=== PATIENT | female | born 1975 | race Caucasian/White ===

== ENCOUNTER 2016-10-23 13:25 | Emergency (ER) | payer MEDICAID ==
[~2016-10-23] VITALS: Ht 157.5 cm; Wt 79.4 kg
[~2016-10-23 13:25] MED LIST: AZITHROMYCIN250 M1 PO; BENZONATATE100 M1 PO; BROMFED DM COU118 ML PO; CYCLOBENZAPRINE5 MG PO; FLONASE 50 MCG16 GM; FLOVENT 11110 MCG/PU IH; HYDROCODONE1 TABLET PO; KEFLEX 500MG.500 MG PO; MEDROL 4MG. DOSE4 MG PO; TOPROL XL 25MG25 MG PO; Tri-Sprintec 281 TAB PO
[2016-10-23] MEDS ORDERED: BROMFED DM COU118 ML PO (14:55)
--- NOTE | 2016-10-23 14:55 | Urgent Treatment Center Report ---
History of Present Issue Date/Time Seen by Provider 10/23/16 1400 Visit Reason Pt arrived:Walked Presenting Problem:PT C/O DRY COUGH, SORE THROAT, STOPPED UP NOSE, AND EARS POPPING Location if Accident: Onset of symptoms date/time:/ or onset unknown for:MEDICAL HX UNKNOWN Have you (or family members/close friends) recently traveled outside the [place]? N If Yes, where/when: Have you had exposure to infectious disease within the past month? TB? Other? Specify: Patient state that she has been having a dry hacky cough, sore throat and stuffy nose for several days that has not improved States that she thought she may should come in and get checked ALLERGIES Coded Allergies: No Known Allergies (12/29/15) Home Medications Active Scripts Fluticasone Propionate (Flonase 50 Mcg Nasal [place]) 2 SPRAY NA DAILY #1 BOT Prov: 09/06/16 Methylprednisolone (Medrol Dose [place]) 4 MG PO UD #1 CÉSAR Prov: 09/06/16 D-METHORPHAN HB/P-EPD HCL/BPM (Bromfed Dm Cough Syrup) 10 ML PO QIDP PRN cough #240 ML Prov: 09/06/16 Reported Medications NORGESTIMATE-ETHINYL ESTRADIOL (Tri-Sprintec Tablet) 1 TAB PO DAILY #28 Metoprolol Succinate Xl (Toprol Xl) 25 MG PO DAILY History Medical History General CAD? No Angina: No [place]: No Hypertension? Yes Hyperlipidemia? No CHF? No DVT? Yes PE? No COPD? No Asthma? Yes Anemia? No GERD? Yes Gastric ulcers? No GI Bleed? No Hernia? No Thyroid Problems? No Hypothyroidism? No CVA? No Seizures? No Diabetes? No Renal Insuffiency? No UTI? Yes Stones? No BPH? No GB Disease: No Nephritic Syndrome? No Asplenia? No Hepatitis? No Sickle Cell Disease? No Arthritis? No Migraines? No Cataracts? No Glaucoma? No MRSA? No HIV? No TB? No Anxiety? Yes Depression? Yes Cancer? No More? No Immunization HX DT/Tetanus 5-10 YRS Flu NEVER Pneumonia NEVER Surgical Hx Previous Surgery?Y LAPAROSCOPY X 2 COLONOSCOPY WISDOM TEETH REMOVED Family History Family HX Diabetes Yes CAD Yes Hypertension Yes Hyperlipidemia Yes Cancer Yes TB No Social History Smoking Hx Smoker: Never Smoker Tobacco: No Are you/the child exposed to second-hand smoke: Yes Alcohol Alcohol: No Review of Systems All Other Systems Reviewed and Negative ENT ear pain, nose discharge, nose congestion. Respiratory cough Physical Exam Vital Signs Vital Signs Date Time Temp Pulse Resp B/P Pulse O2 O2 Flow FiO2 Ox Delivery Rate 10/23 1459 98.2 91 20 110/77 96 10/23 1337 98.2 91 20 110/77 96 General Appearance normal appearance, WD/WN, no apparent distress Respiratory Status Yes: trachea midline, chest symmetrical, non tender chest. No: respiratory distress. 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 No Departure Departure Time of Disposition 1453 Disposition DC Home or Self Care(routine) Clinical Impression Primary Impression: Viral upper respiratory illness Condition STABLE Referrals DALE DOYLE (Family) Patient Instructions DI for Viral Upper Respiratory Infection-Child Additional Instructions * Monitor Temp. Tylenol and/or Ibuprofen as needed. ER if fever is no less than 101 despite alternating Tylenol and Ibuprofen * Encourage fluids, water, Gatorade, powerade, * Warm salt water gargles for throat irritation *Warm fluids *Sore throat lozenges *Sleep elevated Discharge Counseling Counseled pt/family regarding diagnosis, test results, medications/RX, home care, follow up needs Prescriptions Current Visit Scripts D-METHORPHAN HB/P-EPD HCL/BPM (Bromfed Dm Cough Syrup) 10 ML PO Q4HP PRN cough #120 SYR at 0411
[2016-10-23 14:59] VITALS: BP 110/77
== END 2016-10-23 14:59 | disposition home or self-care (01) ==
LOC: UTC 13:25
DX: J06.9 Acute upper respiratory infection, unspecified (principal); I10 Essential (primary) hypertension; K21.9 Gastro-esophageal reflux disease without esophagitis; F41.8 Other specified anxiety disorders

== ENCOUNTER 2017-01-31 20:34 | Emergency (ER) | payer MEDICAID ==
[~2017-01-31] VITALS: Ht 157.5 cm; Wt 78.0 kg
[~2017-01-31 20:34] MED LIST changes: +BACTRIM DS 8001 TA1 PO
--- OUTSIDE RECORDS SUMMARY | 2017-01-31 21:43 | External Medical Summary Rpt ---
Author Author , RUDY PELAYO Address Unknown Phone [email or web address] Purpose Continuity of Care Document - through 2016 Problems Code Diagnosis DOS Provider Status J02.9 ACUTE PHARYNGITIS , UNSPECIFIED M54.16 RADICULOPAT HY, LUMBAR REGION R55 SYNCOPE AND COLLAPSE S06.0X9A CONCUSSION W LOSS OF CONSCIOUSNE SS OF UNSP DURATION, INIT S16.1XXA STRAIN OF MUSCLE, FASCIA AND TENDON AT NECK LEVEL, INIT
--- OUTSIDE RECORDS SUMMARY | 2017-01-31 21:43 | External Medical Summary Rpt ---
Demographics Preferred Language Thai Marital Status Unknown Yarsanism Affiliation Unknown Race Unknown Ethnic Group Unknown Author Author RUDY Address Unknown Phone [email or web address] Purpose Continuity of Care Document - through 2016
--- OUTSIDE RECORDS SUMMARY | 2017-01-31 21:43 | External Medical Summary Rpt ---
Author Author , PIERCE PELAYO Address Unknown Phone [email or web address] Immunization Name Date Rout CVX Reac Dose Comm Prov Is Faci e tion ent ider Refu lity Give sed n Tdap 01-2 115 999 Hist H149 No H149 , 03-12 oric Adso 13 al rbed Info rmat ion - Sour ce Unsp ecif ied Td 03-0 9 999 Hist H149 No H149 (ilya - oric lt), 04 al Info adso rmat rbed ion - Sour ce Unsp ecif ied
--- OUTSIDE RECORDS SUMMARY | 2017-01-31 21:43 | External Medical Summary Rpt ---
Demographics Preferred Language Frisian Marital Status Unknown Amish Affiliation Unknown Race Unknown Ethnic Group Unknown Author Author RUDY Address Unknown Phone [email or web address] Purpose Continuity of Care Document - through 2016
--- OUTSIDE RECORDS SUMMARY | 2017-01-31 21:43 | External Medical Summary Rpt ---
Author Author , PIERCE PELAYO Address Unknown Phone [email or web address] Immunization Name Date Rout CVX Reac Dose [...]
--- OUTSIDE RECORDS SUMMARY | 2017-01-31 21:43 | External Medical Summary Rpt ---
Author Author , RUDY PELAYO Address Unknown Phone [email or web address] Purpose Continuity of Care Document - through 2016 Problems Code Diagnosis DOS Provider Status J02.9 ACUTE PHARYNGITIS , UNSPECIFIED M54.16 RADICULOPAT HY, LUMBAR REGION R55 SYNCOPE AND COLLAPSE S06.0X9A CONCUSSION W LOSS OF CONSCIOUSNE SS OF UNSP DURATION, INIT S16.1XXA STRAIN OF MUSCLE, FASCIA AND TENDON AT NECK LEVEL, INIT
--- NOTE | 2017-01-31 22:31 | Emergency Room Report ---
History of Present Illness Time Seen by [id number] Presenting Problem in Triage Pt arrived:Walked Presenting Problem:DIARRHEA AND DEHYDRATION WITH COUGHING STARTED AT 1800 INTERMITTEN FACIAL DROOPING AND LEFT ARM AND LEG WEAKNESS WITH DIARRHEAL EPISODES WORSE TODAY. 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 N Clinical Suspician of Infection? Y Mental Status: 1 - Regular (Normal Baseline) Sepsis Risk:Low Sepsis Risk Have you (or family members/close friends) recently traveled outside the [place]? N If Yes, where/when: Have you had exposure to infectious disease within the past month? N TB? Other? Specify: Source patient, RN notes reviewed, family, old records Exam Limitations no limitations Comment tosha menendez reports episodes of diarrhea w/o fever or blood over the last few weeks with occ cough and she also has episodes of feeling weak but no def focal neuro sx - these episodes are intermiitent and not paired - she has none of these issues at this time Cardiac Chest Pain Chest pain indicative of cardiac No Timing/Duration this evening Severity moderate ALLERGIES Coded Allergies: No Known Allergies (12/29/15) Home Medications Active Scripts SULFAMETHOXAZOLE W/TRIMETHOPRI (Bactrim Ds Tab) 1 TABLET PO BID #20 TAB Prov: 12/10/16 Fluticasone Propionate (Flonase 50 Mcg Nasal [place]) 2 SPRAY NA DAILY #1 BOT Prov: 09/06/16 D-METHORPHAN HB/P-EPD HCL/BPM (Bromfed Dm Cough Syrup) 10 ML PO QIDP PRN cough #240 ML Prov: 09/06/16 Reported Medications NORGESTIMATE-ETHINYL ESTRADIOL (Tri-Sprintec Tablet) 1 TAB PO DAILY #28 Metoprolol Succinate Xl (Toprol Xl) 25 MG PO DAILY History Medical History General CAD? No Angina: No [place]: No Hypertension? Yes Hyperlipidemia? No CHF? No DVT? Yes PE? No COPD? No Asthma? Yes Anemia? No GERD? Yes Gastric ulcers? No GI Bleed? No Hernia? No Thyroid Problems? No Hypothyroidism? No CVA? No Seizures? No Diabetes? No Renal Insuffiency? No End Stage Renal Disease? No UTI? Yes Stones? No BPH? No GB Disease: No Nephritic Syndrome? No Asplenia? No Hepatitis? No Sickle Cell Disease? No Arthritis? No Migraines? No Cataracts? No Glaucoma? No MRSA? No HIV? No TB? No Anxiety? Yes Depression? Yes Cancer? No More? 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 Respiratory denies cough, denies shortness of breath, denies wheezing Cardiovascular denies chest pain, denies palpitations, denies syncope Gastrointestinal see HPI, denies abdominal pain, diarrhea, denies vomiting Genitourinary denies: dysuria, frequency, hesitancy, hematuria. Musculoskeletal denies back pain, denies joint pain, denies joint swelling, denies neck pain Skin denies rash Psychiatric/Neurological see HPI, denies headache, denies seizure, weakness Physical Exam Vital Signs Vital Signs Date Time Temp Pulse Resp B/P Pulse O2 O2 Flow FiO2 Ox Delivery Rate 02/01 0039 87 14 122/55 98 02/01 0005 98.2 89 14 126/74 98 / 2150 98.2 89 14 112/77 98 / 2139 98.2 89 14 119/99 98 - WBC >12,000 or <4,000 or 10% bands? 2 or more SIRS Criteria Met? B/P:122/55 MAP:105 Creatinine >2.0? UA output<0.5ml/kg/hr for 2 hrs? Platelet count >100,000? Lactate >2.0mmol/1? INR >1.2 or PTT > than 60 sec? Evidence of Organ Dysfunction? Provider documented clinical suspician of infection? Y Sepsis Criteria Count: 1 Sepsis Risk: Low Sepsis Risk General Appearance no apparent distress Eye Exam - bilateral eye PERRL, bilateral eye EOMI Ear, Nose, Throat normal ENT inspection Neck supple Respiratory Status No: respiratory distress. Lung Sounds bilateral: lungs clear. 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 No Results/Orders Laboratory Tests 01/31/172226: Sodium 138, Potassium 4.3, Chloride 105, Carbon Dioxide 26, BUN 8, Creatinine 0.7, Estimated Creat Clear 132, Estimated GFR (MDRD) 93, Glucose 91, Calcium 9.0 , Total Bilirubin 0.2, AST 21, ALT 21, Alkaline Phosphatase 75, Creatine Kinase 74, CK-MB (CK-2) Rel Index 0.7, CK and CKMB Interp < 0.5, Troponin I < 0.02, Total Protein 7.2, Albumin 3.1 L, Globulin 4.1 H, Albumin/Globulin Ratio 0.8 L, WBC 11.4 H, RBC 4.38, Hgb 13.4, Hct 40.6, MCV 92.6, RDW 12.7, Plt Count 308, MPV 7.1 L, Gran % 61.5, Gran # 7.0, Lymphocytes % 29.2, Monocytes % 5.0, Eosinophils % 3.8, Basophils % 0.4, Lymphocytes # 3.3, Monocytes # 0.6, Eosinophils # 0.4, Basophils # 0.1, PUBS MCHC 32.9, MCH 30.5 01/31/17 2218: Urine Color YELLOW, Urine Appearance CLEAR, Urine pH 6.0, Ur Specific [place] <= 1.005, Urine Protein NEGATIVE, Urine Ketones NEGATIVE, Urine Blood NEGATIVE, Urine Nitrate NEGATIVE, Urine Bilirubin NEGATIVE, Urine Urobilinogen 0.2, Ur Leukocyte Esterase TRACE H, Urine RBC NONE, Urine WBC OCC, Ur Squamous Epith Cells 3-5, Urine Bacteria 1+, Urine Glucose NEGATIVE Current Medication Orders Sig/Asher Start time Last Medication Dose Route Stop Time Status Admin Sodium Chloride 1,000 ML .STK-MED ONE 02/01 0000 DC IV Aspirin 0 .STK-MED ONE 01/31 2359 DC .ROUTE Aspirin 324 MG ONCE ONE 01/31 2200 DC 01/31 PO 01/31 2201 235 Sodium Chloride 1,000 ML .Q1H1M 01/31 2200 DC 02/01 IV 01/31 2300 0000 Sodium Chloride 10 ML PRN PRN 01/31 2200 AC IV 02/01 2200 Orders Procedure Date/time Status DIET-NOTHING BY MOUTH 02/01 B Active URINE 01/[address] HEAD W/O CONTRAST 01/31 2213 Active 12 LEAD EKG-BESSON (INITIAL) 01/31 2200 Active ELECTROCARDIOGRAM REQUEST 01/31 2200 Active CHEST-PORTABLE 01/31 2200 Active URINALYSIS/COMPLETE 01/[address] HEAD REQ 01/31 2158 Active IV SALINE LOCK 01/31 2158 Active CBC WITH AUTO DIFF 01/31 2158 Complete CARDIAC ENZYMES 01/31 2158 Complete CHEM 12 PROFILE 01/31 2158 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 of ischemic chgs XRAY/CT/US XRAY/CT/US CT head CT interpretation by discussed w/radiologist Time results known: 0157 CT Results normal/NAD Departure Departure Time of Disposition 150 Disposition DC Home or Self Care(routine) Clinical Impression Primary Impression: Enteritis Condition STABLE Referrals DALE DOYLE (Family) Patient Instructions DIET-DIARRHEA NUTRITION [facility] Additional Instructions call your dr for follow up and recheck if needed Discharge Counseling Counseled pt/family regarding diagnosis, test results, medications/RX, follow up needs ED Critical Care Critical Care No at 0158
--- NOTE | 2017-01-31 22:31 | Emergency Room Report ---
History of Present Illness Time Seen by [id number] Presenting Problem in Triage Pt arrived:Walked Presenting Problem:DIARRHEA AND DEHYDRATION WITH COUGHING STARTED AT 1800 INTERMITTEN FACIAL DROOPING AND LEFT ARM AND LEG WEAKNESS WITH DIARRHEAL EPISODES WORSE TODAY. 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 N Clinical Suspician of Infection? Y Mental Status: 1 - Regular (Normal Baseline) Sepsis Risk:Low Sepsis Risk Have you (or family members/close friends) recently traveled outside the [place]? N If Yes, where/when: Have you had exposure to infectious disease within the past month? N TB? Other? Specify: Source patient, RN notes reviewed, family, old records Exam Limitations no limitations Comment tosha menendez reports episodes of diarrhea w/o fever or blood over the last few weeks with occ cough and she also has episodes of feeling weak but no def focal neuro sx - these episodes are intermiitent and not paired - she has none of these issues at this time Cardiac Chest Pain Chest pain indicative of cardiac No Timing/Duration this evening Severity moderate ALLERGIES Coded Allergies: No Known Allergies (12/29/15) Home Medications Active Scripts SULFAMETHOXAZOLE W/TRIMETHOPRI (Bactrim Ds Tab) 1 TABLET PO BID #20 TAB Prov: 12/10/16 Fluticasone Propionate (Flonase 50 Mcg Nasal [place]) 2 SPRAY NA DAILY #1 BOT Prov: 09/06/16 D-METHORPHAN HB/P-EPD HCL/BPM (Bromfed Dm Cough Syrup) 10 ML PO QIDP PRN cough #240 ML Prov: 09/06/16 Reported Medications NORGESTIMATE-ETHINYL ESTRADIOL (Tri-Sprintec Tablet) 1 TAB PO DAILY #28 Metoprolol Succinate Xl (Toprol Xl) 25 MG PO DAILY History Medical History General CAD? No Angina: No [place]: No Hypertension? Yes Hyperlipidemia? No CHF? No DVT? Yes PE? No COPD? No Asthma? Yes Anemia? No GERD? Yes Gastric ulcers? No GI Bleed? No Hernia? No Thyroid Problems? No Hypothyroidism? No CVA? No Seizures? No Diabetes? No Renal Insuffiency? No End Stage Renal Disease? No UTI? Yes Stones? No BPH? No GB Disease: No Nephritic Syndrome? No Asplenia? No Hepatitis? No Sickle Cell Disease? No Arthritis? No Migraines? No Cataracts? No Glaucoma? No MRSA? No HIV? No TB? No Anxiety? Yes Depression? Yes Cancer? No More? 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 Respiratory denies cough, denies shortness of breath, denies wheezing Cardiovascular denies chest pain, denies palpitations, denies syncope Gastrointestinal see HPI, denies abdominal pain, diarrhea, denies vomiting Genitourinary denies: dysuria, frequency, hesitancy, hematuria. Musculoskeletal denies back pain, denies joint pain, denies joint swelling, denies neck pain Skin denies rash Psychiatric/Neurological see HPI, denies headache, denies seizure, weakness Physical Exam Vital Signs Vital Signs Date Time Temp Pulse Resp B/P Pulse O2 O2 Flow FiO2 Ox Delivery Rate 02/01 0039 87 14 122/55 98 02/01 0005 98.2 89 14 126/74 98 / 2150 98.2 89 14 112/77 98 / 2139 98.2 89 14 119/99 98 - WBC >12,000 or <4,000 or 10% bands? 2 or more SIRS Criteria Met? B/P:122/55 MAP:105 Creatinine >2.0? UA output<0.5ml/kg/hr for 2 hrs? Platelet count >100,000? Lactate >2.0mmol/1? INR >1.2 or PTT > than 60 sec? Evidence of Organ Dysfunction? Provider documented clinical suspician of infection? Y Sepsis Criteria Count: 1 Sepsis Risk: Low Sepsis Risk General Appearance no apparent distress Eye Exam - bilateral eye PERRL, bilateral eye EOMI Ear, Nose, Throat normal ENT inspection Neck supple Respiratory Status No: respiratory distress. Lung Sounds bilateral: lungs clear. 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 No Results/Orders Laboratory Tests 01/31/172226: Sodium 138, Potassium 4.3, Chloride 105, Carbon Dioxide 26, BUN 8, Creatinine 0.7, Estimated Creat Clear 132, Estimated GFR (MDRD) 93, Glucose 91, Calcium 9.0 , Total Bilirubin 0.2, AST 21, ALT 21, Alkaline Phosphatase 75, Creatine Kinase 74, CK-MB (CK-2) Rel Index 0.7, CK and CKMB Interp < 0.5, Troponin I < 0.02, Total Protein 7.2, Albumin 3.1 L, Globulin 4.1 H, Albumin/Globulin Ratio 0.8 L, WBC 11.4 H, RBC 4.38, Hgb 13.4, Hct 40.6, MCV 92.6, RDW 12.7, Plt Count 308, MPV 7.1 L, Gran % 61.5, Gran # 7.0, Lymphocytes % 29.2, Monocytes % 5.0, Eosinophils % 3.8, Basophils % 0.4, Lymphocytes # 3.3, Monocytes # 0.6, Eosinophils # 0.4, Basophils # 0.1, PUBS MCHC 32.9, MCH 30.5 01/31/17 2218: Urine Color YELLOW, Urine Appearance CLEAR, Urine pH 6.0, Ur Specific [place] <= 1.005, Urine Protein NEGATIVE, Urine Ketones NEGATIVE, Urine Blood NEGATIVE, Urine Nitrate NEGATIVE, Urine Bilirubin NEGATIVE, Urine Urobilinogen 0.2, Ur Leukocyte Esterase TRACE H, Urine RBC NONE, Urine WBC OCC, Ur Squamous Epith Cells 3-5, Urine Bacteria 1+, Urine Glucose NEGATIVE Current Medication Orders Sig/Asher Start time Last Medication Dose Route Stop Time Status Admin Sodium Chloride 1,000 ML .STK-MED ONE 02/01 0000 DC IV Aspirin 0 .STK-MED ONE 01/31 2359 DC .ROUTE Aspirin 324 MG ONCE ONE 01/31 2200 DC 01/31 PO 01/31 2201 235 Sodium Chloride 1,000 ML .Q1H1M 01/31 2200 DC 02/01 IV 01/31 2300 0000 Sodium Chloride 10 ML PRN PRN 01/31 2200 AC IV 02/01 2200 Orders Procedure Date/time Status DIET-NOTHING BY MOUTH 02/01 B Active URINE 01/[address] HEAD W/O CONTRAST 01/31 2213 Active 12 LEAD EKG-BESSON (INITIAL) 01/31 2200 Active ELECTROCARDIOGRAM REQUEST 01/31 2200 Active CHEST-PORTABLE 01/31 2200 Active URINALYSIS/COMPLETE 01/[address] HEAD REQ 01/31 2158 Active IV SALINE LOCK 01/31 2158 Active CBC WITH AUTO DIFF 01/31 2158 Complete CARDIAC ENZYMES 01/31 2158 Complete CHEM 12 PROFILE 01/31 2158 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 of ischemic chgs XRAY/CT/US XRAY/CT/US CT head CT interpretation by discussed w/radiologist Time results known: 0157 CT Results normal/NAD Departure Departure Time of Disposition 150 Disposition DC Home or Self Care(routine) Clinical Impression Primary Impression: Enteritis Condition STABLE Referrals DALE DOYLE (Family) Patient Instructions DIET-DIARRHEA NUTRITION [facility] Additional Instructions call your dr for follow up and recheck if needed Discharge Counseling Counseled pt/family regarding diagnosis, test results, medications/RX, follow up needs ED Critical Care Critical Care No at 0158
[2017-01-31 22:34] LABS: URINE BILIRUBIN - DIPSTICK NEGATIVE (NEG); URINE BLOOD NEGATIVE (NEG)
[2017-01-31 22:43] LABS: HEMOGLOBIN 13.4 g/dL (12.2-16.2); LYMPH # 3.3 K/mm3 (0.7-4.5); LYMPH % 29.2 % (10-50.0)
[2017-01-31 23:16] LABS: BUN 8 mg/dL (7-18)
[2017-01-31 23:17] LABS: GFR (ESTIMATED) 93 ML/MIN (59-)
[2017-02-01 02:10] VITALS: BP 122/55
--- NOTE | 2017-02-01 06:41 | RADIOLOGY REPORT PS360 ---
CHEST-PORTABLE HISTORY: Chest pain DEHYDRATION AND NUMBNESS ORDERING PHYSICIAN: Newton Higuera MD PATIENT AGE: 41 years COMPARISON: None available FINDINGS: The cardiomediastinal silhouette and pulmonary vascularity are within normal limits. The lungs are clear without infiltrates, suspicious nodules, or pleural effusions. No acute bony abnormalities. IMPRESSION: Negative chest, no acute finding
--- NOTE | 2017-02-01 06:42 | RADIOLOGY REPORT PS360 ---
CT HEAD W/O CONTRAST HISTORY: Left-sided weakness NUMBNESS AND DEHYDRATION ORDERING PHYSICIAN: Newton Higuera MD PATIENT AGE: 41 years COMPARISON: 12/29/2015 TECHNIQUE: Axial images obtained without contrast. Brain and bone windows reviewed. FINDINGS: No midline shift, mass effect, intracranial hemorrhage, hydrocephalus, or extra-axial fluid collection is evident. The calvarium has an unremarkable appearance. No mastoid effusion. There is mild mucosal thickening of the ethmoid and sphenoid sinuses. IMPRESSION: No acute intracranial findings
== END 2017-02-01 02:12 | disposition home or self-care (01) ==
LOC: ER 20:34
PROVIDERS: Emergency Medicine
DX: K52.9 Noninfective gastroenteritis and colitis, unspecified (principal); I10 Essential (primary) hypertension; K21.9 Gastro-esophageal reflux disease without esophagitis; F41.8 Other specified anxiety disorders

== ENCOUNTER 2017-03-15 19:43 | Emergency (ER) | payer MEDICAID ==
[~2017-03-15] VITALS: Ht 157.5 cm; Wt 87.5 kg
[2017-03-15 20:06] LABS: URINE BILIRUBIN - DIPSTICK NEGATIVE (NEG); URINE BLOOD TRACE (NEG)
--- NOTE | 2017-03-15 20:25 | [facility]gent Treatment Center Report ---
History of Present Issue Date/Time Seen by Provider 03/15/171958 Visit Reason Pt arrived:Walked Presenting Problem:PT C/O BURNING AND ITCHING IN VAGINAL AREA X2-3 DAYS Location if Accident: Onset of symptoms date/time:/ or onset unknown for:MEDICAL HX UNKNOWN Have you (or family members/close friends) recently traveled outside the [place]? N If Yes, where/when: Have you had exposure to infectious disease within the past month? TB? Other? Specify: c/o "I think a UTI". Dysuria and vaginal itching x 2-3 days w/ foul odor and low back pain. LMP ended yesterday. Denies discharge intially but then recalls dark discharge yesterday and today "similiar to period blood though". painful intercourse x 2-3 days. Finished antibiotic around 1-2 weeks ago. sexually active w/ spouse only. No reason to think STD. OCP. Source patient Exam Limitations clinical condition ALLERGIES Coded Allergies: No Known Allergies (03/15/17) Home Medications Active Scripts SULFAMETHOXAZOLE W/TRIMETHOPRI (Bactrim Ds Tab) 1 TABLET PO BID #20 TAB Prov: 12/10/16 Fluticasone Propionate (Flonase 50 Mcg Nasal [place]) 2 SPRAY NA DAILY #1 BOT Prov: 09/06/16 D-METHORPHAN HB/P-EPD HCL/BPM (Bromfed Dm Cough Syrup) 10 ML PO QIDP PRN cough #240 ML Prov: 09/06/16 Reported Medications NORGESTIMATE-ETHINYL ESTRADIOL (Tri-Sprintec Tablet) 1 TAB PO DAILY #28 Metoprolol Succinate Xl (Toprol Xl) 25 MG PO DAILY History Medical History General CAD? No Angina: No [place]: No Hypertension? Yes Hyperlipidemia? No CHF? No DVT? Yes PE? No COPD? No Asthma? Yes Anemia? No GERD? Yes Gastric ulcers? No GI Bleed? No Hernia? No Thyroid Problems? No Hypothyroidism? No CVA? No Seizures? No Diabetes? No Renal Insuffiency? No UTI? Yes Stones? No BPH? No GB Disease: No Nephritic Syndrome? No Asplenia? No Hepatitis? No Sickle Cell Disease? No Arthritis? No Migraines? No Cataracts? No Glaucoma? No MRSA? No HIV? No TB? No Anxiety? Yes Depression? Yes Cancer? No More? No Immunization HX DT/Tetanus 5-10 YRS Flu NEVER Pneumonia NEVER Surgical Hx Previous Surgery?Y LAPAROSCOPY X 2 COLONOSCOPY WISDOM TEETH REMOVED Family History Family HX Diabetes Yes CAD Yes Hypertension Yes Hyperlipidemia Yes Cancer Yes TB No Social History Smoking Hx Smoker: Never Smoker Tobacco: No Are you/the child exposed to second-hand smoke: Yes Alcohol Alcohol: No Review of Systems All Other Systems Reviewed and Negative Constitutional see HPI, denies chills, denies fever, denies malaise Gastrointestinal see HPI, denies abdominal pain, denies nausea, denies vomiting Genitourinary see HPI. denies: abnormal vaginal bleeding, frequency, hesitancy, hx stds. Musculoskeletal see HPI Skin denies lesions, denies lumps Psychiatric/Neurological denies headache, denies other (dizziness) Physical Exam Vital Signs Vital Signs Date Time Temp Pulse Resp B/P Pulse O2 O2 Flow FiO2 Ox Delivery Rate 03/15 2148 98.2 87 14 134/89 98 03/15 1956 98.2 87 14 134/89 98 General Appearance no apparent distress, obese Respiratory Status No: respiratory distress. Cardiovascular no peripheral edema Gastrointestinal normal bowel sounds, non tender, soft, no organomegaly, no guarding, no rebound Back no CVA tenderness, gait normal, no tenderness Pelvic discharge (thin, osei, foul odor), vaginal wall bright red. pt extremely uncomfortable w/ minimal speculum insertion. Asked that exam be stopped. Didn't tolerate manual exam due to vaginal discomfort. Does not want to proceed with vaginal exam despite risk if object in vagina, lesions, abnormal cervix, etc. Agrees to FU w/ ROOFER ASSISTANT. Nurse present during exam? Yes (Daniela) Neurologic alert, oriented x 3 Skin normal color, warm/dry Medical Decision Making LABS/Meds/Orders Pt receiving controlled substance in ED? No Results/Orders Laboratory Tests 03/15/172024: Ur Chlamydia DNA (PCR) Cancelled, Urine GC DNA Probe Cancelled 03/15/172024: C.trachomatis DNA (ELIEZER) Pending, N.gonorrhoeae RNA Pending 03/15/171953: Urine Color DARK YELLOW, Urine Appearance Sl Cloudy, Urine pH 6.0, Ur Specific [place] >= 1.030, Urine Protein NEGATIVE, Urine Ketones NEGATIVE, Urine Blood TRACE H, Urine Nitrate NEGATIVE, Urine Bilirubin NEGATIVE, Urine Urobilinogen 0.2, Ur Leukocyte Esterase NEGATIVE, Urine Glucose NEGATIVE Orders Procedure Date/time Status WET PREP 03/15 2043 Complete CULTURE, URINE 03/15 2043 Active JAMIL PREP 03/15 2043 Complete CHLAMYDIA/GC 03/15 2025 Active [facility] URINE DIPSTICK 03/15 1954 Complete Consult MD Physician Consult Consult/PCP WASHINGTON Morton MD Time Called 2134 Reason Pt. Condition Comments Discussed HPI, exam, results. Suggest treatment for urethritis and vaginitis. Include pyridium w/ FU ROOFER ASSISTANT Friday. Departure Departure Time of Disposition 2138 Disposition DC Home or Self Care(routine) Clinical Impression Primary Impression: Urethritis Secondary Impressions: Vaginitis Qualifiers: Chronicity: acute Qualified Code: N76.0 - Acute vaginitis Condition STABLE Referrals NO REFERRAL Call you ROOFER ASSISTANT Friday morning and schedule follow up appt PHONG. Be sure to tell them you were seen in [facility] for symptoms on Friday. Patient Instructions DI for Atrophic Vaginitis, DI for Urethritis Additional Instructions Follow up w/ ROOFER ASSISTANT VERY important on Friday! let them know we sent urine culture and additional STI tests. those results won't be available tonight. Urine culture in 2-3 days and urine for STI in 5-7 days. * pyridium as needed. Remember this will turn your urine ORANGE, this is normal but will stain whatever it gets on * You should not need the pyridium longer than 48 hours. If so, follow up with ROOFER ASSISTANT to review urine culture Discharge Counseling Counseled pt/family regarding diagnosis, test results, medications/RX, home care, follow up needs Prescriptions Current Visit Scripts Clindamycin Phosphate 5 GM GA QHS #40 GM x 7 days Phenazopyridine HCl (Pyridium) 200 MG PO TIDP PRN dysuria #6 TAB will cause orange urine at 2158
--- NOTE | 2017-03-15 20:25 | Urgent Treatment Center Report ---
History of Present Issue Date/Time Seen by Provider 03/15/171958 Visit Reason Pt arrived:Walked Presenting Problem:PT C/O BURNING AND ITCHING IN VAGINAL AREA X2-3 DAYS Location if Accident: Onset of symptoms date/time:/ or onset unknown for:MEDICAL HX UNKNOWN Have you (or family members/close friends) recently traveled outside the [place]? N If Yes, where/when: Have you had exposure to infectious disease within the past month? TB? Other? Specify: c/o "I think a UTI". Dysuria and vaginal itching x 2-3 days w/ foul odor and low back pain. LMP ended yesterday. Denies discharge intially but then recalls dark discharge yesterday and today "similiar to period blood though". painful intercourse x 2-3 days. Finished antibiotic around 1-2 weeks ago. sexually active w/ spouse only. No reason to think STD. OCP. Source patient Exam Limitations clinical condition ALLERGIES Coded Allergies: No Known Allergies (03/15/17) Home Medications Active Scripts SULFAMETHOXAZOLE W/TRIMETHOPRI (Bactrim Ds Tab) 1 TABLET PO BID #20 TAB Prov: 12/10/16 Fluticasone Propionate (Flonase 50 Mcg Nasal [place]) 2 SPRAY NA DAILY #1 BOT Prov: 09/06/16 D-METHORPHAN HB/P-EPD HCL/BPM (Bromfed Dm Cough Syrup) 10 ML PO QIDP PRN cough #240 ML Prov: 09/06/16 Reported Medications NORGESTIMATE-ETHINYL ESTRADIOL (Tri-Sprintec Tablet) 1 TAB PO DAILY #28 Metoprolol Succinate Xl (Toprol Xl) 25 MG PO DAILY History Medical History General CAD? No Angina: No [place]: No Hypertension? Yes Hyperlipidemia? No CHF? No DVT? Yes PE? No COPD? No Asthma? Yes Anemia? No GERD? Yes Gastric ulcers? No GI Bleed? No Hernia? No Thyroid Problems? No Hypothyroidism? No CVA? No Seizures? No Diabetes? No Renal Insuffiency? No UTI? Yes Stones? No BPH? No GB Disease: No Nephritic Syndrome? No Asplenia? No Hepatitis? No Sickle Cell Disease? No Arthritis? No Migraines? No Cataracts? No Glaucoma? No MRSA? No HIV? No TB? No Anxiety? Yes Depression? Yes Cancer? No More? No Immunization HX DT/Tetanus 5-10 YRS Flu NEVER Pneumonia NEVER Surgical Hx Previous Surgery?Y LAPAROSCOPY X 2 COLONOSCOPY WISDOM TEETH REMOVED Family History Family HX Diabetes Yes CAD Yes Hypertension Yes Hyperlipidemia Yes Cancer Yes TB No Social History Smoking Hx Smoker: Never Smoker Tobacco: No Are you/the child exposed to second-hand smoke: Yes Alcohol Alcohol: No Review of Systems All Other Systems Reviewed and Negative Constitutional see HPI, denies chills, denies fever, denies malaise Gastrointestinal see HPI, denies abdominal pain, denies nausea, denies vomiting Genitourinary see HPI. denies: abnormal vaginal bleeding, frequency, hesitancy, hx stds. Musculoskeletal see HPI Skin denies lesions, denies lumps Psychiatric/Neurological denies headache, denies other (dizziness) Physical Exam Vital Signs Vital Signs Date Time Temp Pulse Resp B/P Pulse O2 O2 Flow FiO2 Ox Delivery Rate 03/15 2148 98.2 87 14 134/89 98 03/15 1956 98.2 87 14 134/89 98 General Appearance no apparent distress, obese Respiratory Status No: respiratory distress. Cardiovascular no peripheral edema Gastrointestinal normal bowel sounds, non tender, soft, no organomegaly, no guarding, no rebound Back no CVA tenderness, gait normal, no tenderness Pelvic discharge (thin, osei, foul odor), vaginal wall bright red. pt extremely uncomfortable w/ minimal speculum insertion. Asked that exam be stopped. Didn't tolerate manual exam due to vaginal discomfort. Does not want to proceed with vaginal exam despite risk if object in vagina, lesions, abnormal cervix, etc. Agrees to FU w/ BUSINESS TECHNOLOGY PROFESSOR. Nurse present during exam? Yes (Daniela) Neurologic alert, oriented x 3 Skin normal color, warm/dry Medical Decision Making LABS/Meds/Orders Pt receiving controlled substance in ED? No Results/Orders Laboratory Tests 03/15/172024: Ur Chlamydia DNA (PCR) Cancelled, Urine GC DNA Probe Cancelled 03/15/172024: C.trachomatis DNA (ELIEZER) Pending, N.gonorrhoeae RNA Pending 03/15/171953: Urine Color DARK YELLOW, Urine Appearance Sl Cloudy, Urine pH 6.0, Ur Specific [place] >= 1.030, Urine Protein NEGATIVE, Urine Ketones NEGATIVE, Urine Blood TRACE H, Urine Nitrate NEGATIVE, Urine Bilirubin NEGATIVE, Urine Urobilinogen 0.2, Ur Leukocyte Esterase NEGATIVE, Urine Glucose NEGATIVE Orders Procedure Date/time Status WET PREP 03/15 2043 Complete CULTURE, URINE 03/15 2043 Active JAMIL PREP 03/15 2043 Complete CHLAMYDIA/GC 03/15 2025 Active [facility] URINE DIPSTICK 03/15 1954 Complete Consult MD Physician Consult Consult/PCP WASHINGTON Morton MD Time Called 2134 Reason Pt. Condition Comments Discussed HPI, exam, results. Suggest treatment for urethritis and vaginitis. Include pyridium w/ FU BUSINESS TECHNOLOGY PROFESSOR Friday. Departure Departure Time of Disposition 2138 Disposition DC Home or Self Care(routine) Clinical Impression Primary Impression: Urethritis Secondary Impressions: Vaginitis Qualifiers: Chronicity: acute Qualified Code: N76.0 - Acute vaginitis Condition STABLE Referrals NO REFERRAL Call you BUSINESS TECHNOLOGY PROFESSOR Friday morning and schedule follow up appt PHONG. Be sure to tell them you were seen in [facility] for symptoms on Friday. Patient Instructions DI for Atrophic Vaginitis, DI for Urethritis Additional Instructions Follow up w/ BUSINESS TECHNOLOGY PROFESSOR VERY important on Friday! let them know we sent urine culture and additional STI tests. those results won't be available tonight. Urine culture in 2-3 days and urine for STI in 5-7 days. * pyridium as needed. Remember this will turn your urine ORANGE, this is normal but will stain whatever it gets on * You should not need the pyridium longer than 48 hours. If so, follow up with BUSINESS TECHNOLOGY PROFESSOR to review urine culture Discharge Counseling Counseled pt/family regarding diagnosis, test results, medications/RX, home care, follow up needs Prescriptions Current Visit Scripts Clindamycin Phosphate 5 GM GA QHS #40 GM x 7 days Phenazopyridine HCl (Pyridium) 200 MG PO TIDP PRN dysuria #6 TAB will cause orange urine at 2158
[2017-03-15] MEDS ORDERED: CLINDAMYCIN PHOSPH2% VA (21:45)
[2017-03-15] MEDS ORDERED: PYRIDIUM200 M2 PO (21:45)
[2017-03-15 21:48] VITALS: BP 134/89
[2017-03-19 03:37] LABS: Neisseria gonorrhoeae, NAA Negative (Negative)
== END 2017-03-15 21:49 | disposition home or self-care (01) ==
LOC: UTC 19:43
PROVIDERS: Nurse Practitioner Family
DX: N34.2 Other urethritis (principal); N76.0 Acute vaginitis; K21.9 Gastro-esophageal reflux disease without esophagitis; I10 Essential (primary) hypertension; J45.909 Unspecified asthma, uncomplicated; F41.8 Other specified anxiety disorders